=== PATIENT | female | born 1990 | race Caucasian/White ===

== ENCOUNTER 2022-10-14 18:45 | Observation (INO) | payer MEDICAID, SELFPAY ==
[2022-10-14 18:48] VITALS: BP 132/83; PULSE 83; RESP 16; TEMP 37.2; O2SAT 100; BMI 29.2
--- NOTE | 2022-10-14 19:00 | EX.ED.DYSGE1 ---
HPI <MARISA Doss - Last Filed: 10/14/22 20:36> History of Present Illness Chief Complaint: Substance Abuse Narrative Narrative: 32-year-old female with history of anxiety, depression presents to the [facility] apartment for detox from heroin. Patient states that she smokes heroin every 3 hours over the last year. Patient states that in the last year she has not tried to quit. Today, the patient states that she is losing too much of her personal life, she has children, that are being threatened to take away, and she is here for detox. Patient states that she has some nausea, some diarrhea. Patient is tearful however denies any suicidal homicidal ideation. Patient states that she does not use any other drugs, she only smokes cigarettes and uses heroin by inhalation. Patient recently was on a Z-Elier for a respiratory infection. [facility] <MARISA Doss - Last Filed: 10/14/22 20:36> [facility] Medical History Anxiety Depression Medical History no medical history Home Medications albuterol sulfate 90 mcg/actuation aerosol inhaler 1 - 2 inh inhalation UD PRN SHORTNESS OF BREATH/WHEEZING 10/14/22 [History Last Taken 10/13/22] vitamin with calcium no.72-iron 27 mg-folic acid 1 mg tablet (M-Rian Plus) 1 tab PO QHS HEALTH MAINTENANCE 10/14/22 [History Last Taken 10/13/22] sertraline 100 mg tablet 200 mg PO QHS DEPRESSION 10/14/22 [History Last Taken 10/13/22] valacyclovir 500 mg tablet 500 mg PO QHS 10/14/22 [History Last Taken 10/13/22] Allergy/AdvReac Type Severity Reaction Status Date / Time cefaclor [From [facility]] Allergy Rash Verified 10/14/22 18:48 Family History Other Previous section Surgical History H/O: hysterectomy History of tonsillectomy Previous section Surgical History no surgical history Social History Smoking Status: Current every day smoker tobacco type: cigarettes ROS <MARISA Doss - Last Filed: 10/14/22 20:36> ROS ED ROS Narrative Constitutional: Negative for fever, chills, weight loss, weakness Eyes: Negative for vision loss, vision change, double vision ENT: Negative for any sore throat, ear pain, congestion Cardiovascular: Negative for any chest pain, tightness, palpitations Respiratory: Negative for any cough, sputum production, hemoptysis, dyspnea, dyspnea on exertion, orthopnea Gastrointestinal: Negative for any abdominal pain, vomiting, constipation, blood in stool, blood in vomit. Positive for intermittent nausea, diarrhea : Negative for any urinary frequency, dysuria, retention, blood in urine Muscle skeletal: Negative for any muscle joint pain, stiffness, arthralgias, neck pain, back pain. Positive for myalgias Neurological: Negative for any headache, syncope, numbness or tingling, dizziness Skin: Negative for any rashes, lumps, itching, abrasions, lacerations Psychiatric: Negative for any depression, anxiety, stress, suicidal ideation, homicidal ideation Hematologic: Negative for any easy bruising, excessive bruising, easy bleeding Allergies: Negative for any eczema, hives, rash EXAM <MARISA Doss - Last Filed: 10/14/22 20:36> Physical Exam Narrative Exam Narrative: Vital signs reviewed. Patient is tearful however she is in no distress. HEET: Head normocephalic atraumatic, TMs clear bilaterally. Posterior pharynx is clear, moist mucous membranes. Nares clear bilaterally. Neck: Supple with no lymphadenopathy or tenderness. No signs of meningismus, negative jolt sign. Cardiac: Regular rate and rhythm no murmurs gallops or rubs, equal peripheral pulses bilaterally. Respiratory: Patient has expiratory wheeze to bilateral lower lungs. No chest tenderness. Abdomen: Soft, nontender, nondistended. No abdominal bruit or pulsatile masses. No hepatosplenomegaly Extremities: No peripheral edema, no signs of gross trauma or deformity. Active full range of motion of all extremities. Neuro: Cranial nerves II through XII intact, no focal neurological deficits. Skin: Clean dry and intact with no rash, purpura, petechiae, vesicles or pustules. Backs/flank: No CVA tenderness, no midline spinal tenderness, no deformity. Psych: Normal mood and affect. No SI, HI or acute psychosis. Const Vital Signs: 10/14/22 18:48 Temperature 98.9 F Temperature Source Temporal Pulse Rate 83 Respiratory Rate 16 Blood Pressure 132/83 H Blood Pressure Mean 99 Pulse Ox 100 Oxygen Delivery Method Room Air <Dr. Cristofer Spears MD - Last Filed: 10/14/22 20:58> Physical Exam Const Vital Signs: 10/14/22 18:48 Temperature 98.9 F Temperature Source Temporal Pulse Rate 83 Respiratory Rate 16 Blood Pressure 132/83 H Blood Pressure Mean 99 Pulse Ox 100 Oxygen Delivery Method Room Air MDM <MARISA Doss - Last Filed: 10/14/22 20:36> [facility] Lab Data Attestation: I reviewed the patient's lab results. Labs: Laboratory Results - last 24 hr 10/14/22 10/14/22 10/14/22 19:12 19:20 19:20 WBC 12.9 H RBC 5.17 Hgb 15.6 H Hct 47.6 H MCV 92.1 MCH 30.2 MCHC 32.8 RDW Std Deviation 43.5 RDW Coeff of Joni 13.0 Plt Count 411 MPV 9.1 Immature Gran % (Auto) 0.500 Neut % (Auto) 75.1 H Lymph % (Auto) 19.1 Bradley % (Auto) 5.0 Eos % (Auto) 0.2 Baso % (Auto) 0.1 Absolute Neuts (auto) 9.7 H Absolute Lymphs (auto) 2.47 Nucleated RBC % 0 Sodium 139 Potassium 3.9 Chloride 105 Carbon Dioxide 30.0 Anion Gap 4 L BUN 9 Creatinine 0.66 Estim Creat Clear Calc 100.29 Est GFR (MDRD) Af Amer 133 Est GFR (MDRD) Non-Af 110 BUN/Creatinine Ratio 13.7 Glucose 107 H Calcium 9.6 Serum , Qual Urine Opiates Screen POSITIVE H Urine Methadone Screen NEGATIVE Ur Barbiturates Screen NEGATIVE Ur Phencyclidine Scrn NEGATIVE Ur Amphetamines Screen NEGATIVE MDMA (Ecstasy) Screen POSITIVE H U Benzodiazepines Scrn NEGATIVE Urine Cocaine Screen POSITIVE H U Cannabinoids Screen NEGATIVE Ur Drug Screen Comment Ethyl Alcohol 10/14/22 10/14/22 19:20 19:20 WBC RBC Hgb Hct MCV MCH MCHC RDW Std Deviation RDW Coeff of Joni Plt Count MPV Immature Gran % (Auto) Neut % (Auto) Lymph % (Auto) Bradley % (Auto) Eos % (Auto) Baso % (Auto) Absolute Neuts (auto) Absolute Lymphs (auto) Nucleated RBC % Sodium Potassium Chloride Carbon Dioxide Anion Gap BUN Creatinine Estim Creat Clear Calc Est GFR (MDRD) Af Amer Est GFR (MDRD) Non-Af BUN/Creatinine Ratio Glucose Calcium Serum , Qual NEGATIVE Urine Opiates Screen Urine Methadone Screen Ur Barbiturates Screen Ur Phencyclidine Scrn Ur Amphetamines Screen MDMA (Ecstasy) Screen U Benzodiazepines Scrn Urine Cocaine Screen U Cannabinoids Screen Ur Drug Screen Comment Ethyl Alcohol < 3.0 Radiography Diagnostic Testing: Clinical Impression(s) from Imaging Studies Chest X-Ray 10/14/22 19:24 IMPRESSION: No acute cardiopulmonary pathology Electronically Signed: Basilio Mata MD at 20:29 EST Reading Location ID and State: [address] [place] [address] , Service support , Treatment and Re-Evaluation Narrative: Patient appears tearful however she is in no distress. Patient presents to the emergency department for detox from smoking heroin.Patient does have some wheezing, she recently finished a Z-Leier. She will receive a albuterol inhaler, patient CBC shows a leukocytosis white blood count 12.9, patient's chemistries were unremarkable, patient's not , she is positive for opiates, ecstasy, cocaine, however patient is on Zoloft, this could skew the status. Patient chest x-ray 2 view inter by ER physician shows no acute process. Patient was given Ventolin inhaler. Patient will be admitted to the hospitalist for heroin abuse, request detox. <Dr. Cristofer Spears MD - Last Filed: 10/14/22 20:58> [facility] MDM Narrative Medical decision making narrative: I have personally performed a face to face assessment of the patient and have reviewed the SARAN Note. I performed a substantive portion of the visit including all aspects of the following. My franco findings include: History is remarkable for fentanyl use daily. She states she snorts every 3-4 hours. She denies amphetamine methamphetamine use. She has not taken any Adderall in several months. She is on Zoloft which can give a false positive test for amphetamines. This would not explain her talk screen being positive for cocaine though. She states this is affecting her family life. She has 3 kids. She states she presents because she wants help. She has never been in a detox program before. She denies any constitutional symptoms. Denies history of SBE or being immune suppressed. She denies IV drug use. Exam is vital signs are marked for slight elevation of blood pressure. HEENT exams unremarkable. Heart lung exams is remarkable for wheezing. She was treated with MDI. She does give history of recent upper respiratory infection. Abdomen soft nontender. Neuro exam is nonfocal. Medical Decision Making because patient has wheezing she was treated with metered-dose inhaler. She was directed to use the metered-dose inhaler. Chest is obtained to rule out pneumonia. Chest x-ray was independently reviewed and interpreted by me as negative. Blood work is unremarkable. Appropriate blood test for screening for admission for addiction medicine was obtained. Patient be admitted to the hospital service. Other additions or changes: [None] Lab Data Labs: Laboratory Results - last 24 hr 10/14/22 10/14/22 10/14/22 19:12 19:20 19:20 WBC 12.9 H RBC 5.17 Hgb 15.6 H Hct 47.6 H MCV 92.1 MCH 30.2 MCHC 32.8 RDW Std Deviation 43.5 RDW Coeff of Joni 13.0 Plt Count 411 MPV 9.1 Immature Gran % (Auto) 0.500 Neut % (Auto) 75.1 H Lymph % (Auto) 19.1 Bradley % (Auto) 5.0 Eos % (Auto) 0.2 Baso % (Auto) 0.1 Absolute Neuts (auto) 9.7 H Absolute Lymphs (auto) 2.47 Nucleated RBC % 0 Sodium 139 Potassium 3.9 Chloride 105 Carbon Dioxide 30.0 Anion Gap 4 L BUN 9 Creatinine 0.66 Estim Creat Clear Calc 100.29 Est GFR (MDRD) Af Amer 133 Est GFR (MDRD) Non-Af 110 BUN/Creatinine Ratio 13.7 Glucose 107 H Calcium 9.6 Serum , Qual Urine Opiates Screen POSITIVE H Urine Methadone Screen NEGATIVE Ur Barbiturates Screen NEGATIVE Ur Phencyclidine Scrn NEGATIVE Ur Amphetamines Screen NEGATIVE MDMA (Ecstasy) Screen POSITIVE H U Benzodiazepines Scrn NEGATIVE Urine Cocaine Screen POSITIVE H U Cannabinoids Screen NEGATIVE Ur Drug Screen Comment Ethyl Alcohol 10/14/22 10/14/22 19:20 19:20 WBC RBC Hgb Hct MCV MCH MCHC RDW Std Deviation RDW Coeff of Joni Plt Count MPV Immature Gran % (Auto) Neut % (Auto) Lymph % (Auto) Bradley % (Auto) Eos % (Auto) Baso % (Auto) Absolute Neuts (auto) Absolute Lymphs (auto) Nucleated RBC % Sodium Potassium Chloride Carbon Dioxide Anion Gap BUN Creatinine Estim Creat Clear Calc Est GFR (MDRD) Af Amer Est GFR (MDRD) Non-Af BUN/Creatinine Ratio Glucose Calcium Serum , Qual NEGATIVE Urine Opiates Screen Urine Methadone Screen Ur Barbiturates Screen Ur Phencyclidine Scrn Ur Amphetamines Screen MDMA (Ecstasy) Screen U Benzodiazepines Scrn Urine Cocaine Screen U Cannabinoids Screen Ur Drug Screen Comment Ethyl Alcohol < 3.0 Radiography Chest X-Ray - ED: Read by ED Physician, Normal, Heart, Lungs, Mediastinum, Bony Structures and No Acute Disease Diagnostic Testing: Clinical Impression(s) from Imaging Studies Chest X-Ray 10/14/22 19:24 IMPRESSION: No acute cardiopulmonary pathology Electronically Signed: Basilio Mata MD at 20:29 EST Reading Location ID and State: [facility] / [place] , Service support , Discharge Plan Dx/Rx/DC Orders Clinical Impression: Opiate abuse, continuous, Ecstasy abuse, Cough Disposition Disposition: Acute Care [facility]
--- NOTE | 2022-10-14 19:24 | RAD_ITS ---
STUDY: X-RAY CHEST REASON FOR EXAM: Female, 32 years old. cough TECHNIQUE: PA and lateral COMPARISON: None. FINDINGS: The lungs are clear and expanded. There is no demonstrated pleural abnormality. Normal size heart. Normal mediastinum and gabriela. Normal visualized pulmonary arteries. Normal visualized aortic arch and descending thoracic aorta. Dorsal spine demonstrates mild spondylosis. Normal visualized ribs, left clavicle and shoulders. Deformity of the distal right clavicle possibly on the basis of old trauma. There is no demonstrated abnormality of the visualized soft tissue structures of the upper abdomen. RAD/Chest PA and Lateral IMPRESSION: No acute cardiopulmonary pathology Electronically Signed: Basilio Mata MD at 20:29 EST ,
[2022-10-14 19:28] LABS: Absolute Lymphocyte Count 2.47 X10^3/uL (0.83-4.51); Absolute Neutrophil Count 9.7 X10^3/uL (2.0-7.7); Basophil# 0.01 X10^3/uL; Basophil% 0.1 % (0-1); Eosinophil# 0.03 X10^3/uL; Eosinophils% 0.2 % (0-5); Hematocrit 47.6 % (37-47); Hemoglobin 15.6 g/dL (12.0-15.0); Lymphocyte # 2.47 X10^3/ul (0.83-4.51); Lymphocyte % 19.1 % (19-41); Mean Corp Hgb Conc 32.8 g/dL (32-36); Mean Corpuscular Hgb 30.2 pg (27.0-32.0); Mean Corpuscular Volume 92.1 fL (81-99); Mean Platelet Vol. 9.1 fl (6.2-12.0); Monocyte# 0.65 X10^3/uL; NRBC Flagged by Analyzer 0 % (0-5); Neutrophil # 9.69 X10^3/uL (2.7-7.7); Neutrophil % 75.1 % (47-70); Platelet Count 411 K/mm3 (150-450); RBC Distribution Width SD 43.5 fl (35.1-43.9); Red Blood Count 5.17 M/mm3 (4.2-5.4); White Blood Count 12.9 K/mm3 (4.4-11.0)
[2022-10-14 19:37] LABS: Amphetamine Urine VISTA NEGATIVE (<1000 ng/mL); Barbiturate Urine VISTA NEGATIVE (< 200 ng/mL); Benzodiazepine Urine VISTA NEGATIVE (< 200 ng/mL); Cocaine Urine VISTA POSITIVE (< 300 ng/mL); Ecstacy Urine VISTA POSITIVE (< 500 ng/mL); Methadone Urine VISTA NEGATIVE (< 300 ng/mL); PCP Urine VISTA NEGATIVE (< 25 ng/mL); THC Urine VISTA NEGATIVE (< 50 ng/mL); Vista UDS pH Range 5
[2022-10-14 19:58] LABS: Internal QC Validated? YES +Cl - CLEAR BKGD; Pregnancy, Serum, hCG Quali. NEGATIVE Negative
[2022-10-14 20:01] LABS: Alcohol, Blood (Medical)-Serum < 3.0 mg/dL
[2022-10-14 20:03] LABS: Anion Gap 4 (5-15); BUN 9 mg/dL (7-18); BUN/Creat Ratio 13.7 RATIO (10-20); Calcium,Total 9.6 mg/dL (8.5-10.1); Chloride 105 mmol/L (98-107); Creatinine, Serum 0.66 mg/dL (0.55-1.02); EST Glomerular Filtration Rate 110 mL/min (>60); Est Glom Filt Rate - Afr Amer 133 mL/min (>60); Estimated Creatinine Clearance 100.29 ml/min; Glucose 107 mg/dL (74-106); Potassium 3.9 mmol/L (3.5-5.1); Sodium Level 139 mmol/L (136-145)
--- NOTE | 2022-10-14 20:14 | PCM.HP.STD ---
HPI - General General Date of Admission: 10/14/22 Date of Service: 10/14/22 Chief Complaint: Desire for detoxification HPI Narrative PAIGE JACKSON, is a 32 F with a significant history of anxiety and depression; tobacco abuse and and heroin abuse who presents to emergency department with help with detoxification. Reportedly patient has been using heroin for the past 11 months. She smokes the heroin. She smokes about every 3 hours. Last time she used was about 2 and half hours prior to presentation. She used about $50-$100 per day. She reports beginning of withdrawal symptoms. Her withdrawal symptoms includes feeling of something crawling on her body; and anxiety. She report that when she goes into intense withdrawal she has nausea and diarrhea. She is motivated to quit drug use because of her children. She wants to be able to care of her children; and does not want her children to be taken away from her. Recently patient had upper respiratory infection and completed a course of Z-Eleir. Although she reports some improvements in her respiratory symptoms she continues to have some cough above her baseline and postnasal drip. [facility] Medical History Anxiety Depression Medical History no medical history Home Medications albuterol sulfate 90 mcg/actuation aerosol inhaler 1 - 2 inh inhalation UD PRN SHORTNESS OF BREATH/WHEEZING 10/14/22 [History Last Taken 10/13/22] vitamin with calcium no.72-iron 27 mg-folic acid 1 mg tablet (M- Plus) 1 tab PO QHS HEALTH MAINTENANCE 10/14/22 [History Last Taken 10/13/22] sertraline 100 mg tablet 200 mg PO QHS DEPRESSION 10/14/22 [History Last Taken 10/13/22] valacyclovir 500 mg tablet 500 mg PO QHS 10/14/22 [History Last Taken 10/13/22] Allergy/AdvReac Type Severity Reaction Status Date / Time [facility] Allergy Rash Verified 10/14/22 18:48 Family History Other Previous section Surgical History H/O: hysterectomy History of tonsillectomy Previous section Surgical History no surgical history Social History Smoking Status: Current every day smoker tobacco type: cigarettes ROS ROS Narrative Pertinent positives and pertinent negatives as noted in HPI. All other systems were reviewed and are negative Vital Signs Vital Signs Vital Signs: 10/14/22 18:48 Temperature 98.9 F Temperature Source Temporal Pulse Rate 83 Respiratory Rate 16 Blood Pressure 132/83 H Blood Pressure Mean 99 Pulse Ox 100 Oxygen Delivery Method Room Air Weight Weight: 74.8 kg Body Mass Index (BMI) 29.2 Physical Exam Narrative Physical exam: General: Well-nourished, well-developed. Head: Normocephalic, atraumatic, no tenderness Eyes: Vision is grossly intact. EOMI ENT, no trauma, moist mucous membranes, no rhinorrhea Neck: Nontender, full range of motion, no spinal tenderness. CVS: Regular rate and rhythm. S1-S2 present. No murmur, gallop or rub. Respiratory : Wheezes throughout, chest wall nontender. Abdomen: Soft, nontender, nondistended, normal bowel sounds, no masses : Deferred Back: Nontender, no CVA tenderness, no midline spinal tenderness, deformities, step-offs Extremities: Nontender full range of motion, no trauma Skin: Normal color, no trauma, abrasions Neuro: Alert, oriented, cranial nerves II through XII grossly intact. Psychiatry: Normal mood. Normal affect. Not depressed. Not anxious. Results Lab / Micro Data Result Diagrams: 10/14/22 19:20 10/14/22 19:20 Labs: Laboratory Results - last 24 hr 10/14/22 19:12: Urine Opiates Screen POSITIVE H, Urine Methadone Screen NEGATIVE, Ur Barbiturates Screen NEGATIVE, Ur Phencyclidine Scrn NEGATIVE, Ur Amphetamines Screen NEGATIVE, MDMA (Ecstasy) Screen POSITIVE H, U Benzodiazepines Scrn NEGATIVE, Urine Cocaine Screen POSITIVE H, U Cannabinoids Screen NEGATIVE, Ur Drug Screen Comment 10/14/22 19:20: WBC 12.9 H, RBC 5.17, Hgb 15.6 H, Hct 47.6 H, MCV 92.1, MCH 30.2, MCHC 32.8, RDW Std Deviation 43.5, RDW Coeff of Joni 13.0, Plt Count 411, MPV 9.1, Immature Gran % (Auto) 0.500, Neut % (Auto) 75.1 H, Lymph % (Auto) 19.1, [place] % (Auto) 5.0, Eos % (Auto) 0.2, Baso % (Auto) 0.1, Absolute Neuts (auto) 9.7 H, Absolute Lymphs (auto) 2.47, Nucleated RBC % 0 10/14/22 19:20: Sodium 139, Potassium 3.9, Chloride 105, Carbon Dioxide 30.0, Anion Gap 4 L, BUN 9, Creatinine 0.66, Estim Creat Clear Calc 100.29, Est GFR (MDRD) Af Amer 133, Est GFR (MDRD) Non-Af 110, BUN/Creatinine Ratio 13.7, Glucose 107 H, Calcium 9.6 10/14/22 19:20: Ethyl Alcohol < 3.0 10/14/22 19:20: Serum , Qual NEGATIVE Assessment & Plan Assessment/Plan (1) Desire for detoxification: (2) Tobacco abuse: PLAN: Plan Opioid dependence and withdrawal/desire for detoxification Patient be started on Subutex and other adjunctive medications: Gabapentin as needed; dicyclomine as needed; Vistaril as needed; methocarbamol as needed; clonidine as needed; Imodium as needed; trazodone as needed and Zofran as needed. Monitor COWS and CINA score Tobacco abuse Counseled Nicotine patch; and nicotine prescribed. Wheezing Albuterol inhalation was given at the emergency department and continued. DVT prophylaxis Low risk Encourage to ambulate Charges/Coding Visit Charges Inpatient E&M: 21076 Init Hosp L2
[2022-10-14] MEDS: Albuterol Sulfate 8 gm Inhaler (60 puffs) 2 PUFF INHALATION (20:38)
[2022-10-14 20:41] VITALS: PULSE 82; RESP 14
[2022-10-14 20:42] VITALS: BP 128/78; PULSE 78; RESP 16; TEMP 36.6; O2SAT 99
[2022-10-14 21:00] VITALS: BP 126/78; PULSE 78; RESP 16; O2SAT 100
[2022-10-14 21:36] VITALS: BMI 28.8
--- NOTE | 2022-10-14 22:17 | NURSING ---
Patient would like to discuss getting covid and flu vaccines tomorrow. She would like to think about it.
[2022-10-14 22:19] VITALS: BP 130/79; PULSE 89; RESP 18; TEMP 37.2; O2SAT 97
[2022-10-14] MEDS: Sertraline 100 MG Tablet 200 MG PO (22:40)
[2022-10-14] MEDS: traZODone 100 MG Tablet PO (22:40)
[2022-10-14] MEDS: Nicotine Polacrilex 2 MG GUM PO (22:42)
[2022-10-15] VITALS (8 sets, daily range): BP systolic 100–130; BP diastolic 64–96; PULSE 90–102; RESP 12–20; TEMP 36.7–37.6; O2SAT 92–98
[2022-10-15] MEDS: hydrOXYzine PAM 25 MG Capsule 50 MG PO ×3 (04:03→16:49)
[2022-10-15] MEDS: cloNIDine HCl 0.1 MG Tablet PO ×2 (04:03→16:04)
[2022-10-15] MEDS: Dicyclomine 10 MG Capsule 20 MG PO ×3 (04:03→16:49)
[2022-10-15] MEDS: Methocarbamol 750 MG Tablet 1500 MG PO ×3 (04:03→16:50)
[2022-10-15] MEDS: Buprenorphine HCl 2 MG TAB.SUBL SL ×3 (04:09→20:34)
[2022-10-15] MEDS: Gabapentin 300 MG Capsule PO ×2 (05:28→16:04)
[2022-10-15] MEDS: Ondansetron 8 MG Tablet PO ×2 (06:12→20:34)
--- NOTE | 2022-10-15 06:53 | PCM.PN.HOSP ---
Subjective Subjective Feels miserable. Restless legs and being very agitated. Objective Data Objective Data Vital Signs: Vital Signs Temp Pulse Resp BP Pulse Ox O2 Del Method 36.7 C 102 H 20 H 108/96 H 96 Room Air 10/15/22 06:04 10/15/22 06:04 10/15/22 06:04 10/15/22 06:04 10/15/22 06:04 10/15/22 06:04 Oxygen Delivery Method Room Air Weight: 73.8 kg Body Mass Index (BMI) 28.8 Intake & Output: Intake and Output for Last 24 Hours 10/13/22 10/14/22 10/15/22 23:59 23:59 23:59 Intake Total 400 / 400 Balance 400 / 400 Lab / Micro Data Result Diagrams: 10/14/22 19:20 10/14/22 19:20 Labs: Laboratory Results - last 24 hr 10/14/22 19:12: Urine Opiates Screen POSITIVE H, Urine Methadone Screen NEGATIVE, Ur Barbiturates Screen NEGATIVE, Ur Phencyclidine Scrn NEGATIVE, Ur Amphetamines Screen NEGATIVE, MDMA (Ecstasy) Screen POSITIVE H, U Benzodiazepines Scrn NEGATIVE, Urine Cocaine Screen POSITIVE H, U Cannabinoids Screen NEGATIVE, Ur Drug Screen Comment 10/14/22 19:20: WBC 12.9 H, RBC 5.17, Hgb 15.6 H, Hct 47.6 H, MCV 92.1, MCH 30.2, MCHC 32.8, RDW Std Deviation 43.5, RDW Coeff of Joni 13.0, Plt Count 411, MPV 9.1, Immature Gran % (Auto) 0.500, Neut % (Auto) 75.1 H, Lymph % (Auto) 19.1, [place] % (Auto) 5.0, Eos % (Auto) 0.2, Baso % (Auto) 0.1, Absolute Neuts (auto) 9.7 H, Absolute Lymphs (auto) 2.47, Nucleated RBC % 0 10/14/22 19:20: Sodium 139, Potassium 3.9, Chloride 105, Carbon Dioxide 30.0, Anion Gap 4 L, BUN 9, Creatinine 0.66, Estim Creat Clear Calc 100.29, Est GFR (MDRD) Af Amer 133, Est GFR (MDRD) Non-Af 110, BUN/Creatinine Ratio 13.7, Glucose 107 H, Calcium 9.6 10/14/22 19:20: Ethyl Alcohol < 3.0 10/14/22 19:20: Serum , Qual NEGATIVE Radiography Diagnostic Testing: Radiology Impression Chest X-Ray 10/14/22 19:24 IMPRESSION: No acute cardiopulmonary pathology Electronically Signed: Basilio aMta MD at 20:29 EST , Physical Exam Const Constitutional Narrative: Writhing in bed but consolable. Resp normal respiratory effort, no retractions, no use of accessory muscles and clear to auscultation bilaterally Cardio regular rate, regular rhythm, S1 normal heart sound and S2 normal heart sound GI normal to inspection, nondistended, normoactive bowel sounds Assessment & Plan Assessment/Plan (1) Desire for detoxification: PLAN: Smokes heroin. Last use 10/14. Opioid dependence and withdrawal/desire for detoxification Patient be started on Subutex and other adjunctive medications: Gabapentin as needed; dicyclomine as needed; Vistaril as needed; methocarbamol as needed; clonidine as needed; Imodium as needed; trazodone as needed and Zofran as needed. Monitor COWS and CINA score Patient feeling uncomfortable today with her withdrawal. Patient advised that this can be intense for 24 to 48 hours after last use. Her last use was the 25th. Patient seen and showed understanding when she was made aware that there is not much additional medications would give to her at this time. She was requesting trazodone but informed that that can only be given to her at night. (2) Tobacco abuse: PLAN: nicotine patch. PLAN: Plan DVT prophylaxis Low risk Encourage to ambulate Charges/Coding Visit Charges Inpatient E&M: 89703 Subs Hosp L2
[2022-10-15] MEDS: Ensure Plus High Protein 120 ML LIQUID PO (08:29)
--- NOTE | 2022-10-15 08:31 | NURSING ---
warm blanket provided, pt is aware Dr Greta Hawthorne will not change her meds at this time.
[2022-10-15] MEDS: Nicotine Polacrilex 2 MG GUM PO (16:08)
[2022-10-15] MEDS: traZODone 100 MG Tablet PO (20:34)
[2022-10-15] MEDS: Sertraline 100 MG Tablet 200 MG PO (20:36)
[2022-10-16 02:57] VITALS: BP 106/66; PULSE 91; RESP 16; TEMP 36.9; O2SAT 93
[2022-10-16] MEDS: Gabapentin 300 MG Capsule PO ×3 (03:06→20:30)
[2022-10-16] MEDS: cloNIDine HCl 0.1 MG Tablet PO ×3 (03:06→20:30)
[2022-10-16] MEDS: Dicyclomine 10 MG Capsule 20 MG PO ×3 (03:06→16:03)
[2022-10-16] MEDS: Methocarbamol 750 MG Tablet 1500 MG PO ×2 (03:06→12:00)
[2022-10-16] MEDS: Buprenorphine HCl 2 MG TAB.SUBL SL ×3 (04:37→19:57)
--- NOTE | 2022-10-16 07:44 | PCM.PN.HOSP ---
Subjective Subjective Request antibiotics for sinus infection. States that she had some antibiotics weeks ago but her nasal congestion has gotten worse and she has been here. Objective Data Objective Data Vital Signs: Vital Signs Temp Pulse Resp BP Pulse Ox O2 Del Method 36.9 C 91 16 106/66 93 Room Air 10/16/22 02:57 10/16/22 02:57 10/16/22 02:57 10/16/22 02:57 10/16/22 02:57 10/16/22 02:57 Oxygen Delivery Method Room Air Weight: 73.8 kg Body Mass Index (BMI) 28.8 Intake & Output: Intake and Output for Last 24 Hours 10/14/22 10/15/22 10/16/22 23:59 23:59 23:59 Intake Total 400 / 900 1100 / 1100 Balance 400 / 900 1100 / 1100 Lab / Micro Data Result Diagrams: 10/14/22 19:20 10/14/22 19:20 Physical Exam Const alert, no apparent distress and average body habitus HEENT HEENT Narrative: Maxillary sinus tenderness. Resp normal respiratory effort, no retractions, no use of accessory muscles and clear to auscultation bilaterally Cardio regular rate, regular rhythm, S1 normal heart sound and S2 normal heart sound GI normal to inspection, nondistended, normoactive bowel sounds and soft to palpation Assessment & Plan Assessment/Plan (1) Desire for detoxification: PLAN: Smokes heroin. Last use 10/14. Opioid dependence and withdrawal/desire for detoxification Patient be started on Subutex and other adjunctive medications: Gabapentin as needed; dicyclomine as needed; Vistaril as needed; methocarbamol as needed; clonidine as needed; Imodium as needed; trazodone as needed and Zofran as needed. Monitor COWS and CINA score Patient feeling uncomfortable today with her withdrawal. Patient advised that this can be intense for 24 to 48 hours after last use. Her last use was the 25th. Patient seen and showed understanding when she was made aware that there is not much additional medications would give to her at this time. She was requesting trazodone but informed that that can only be given to her at night. (2) Tobacco abuse: PLAN: nicotine patch. (3) Nasal congestion: PLAN: Patient does have some mild maxillary sinus tenderness. I doubt this is bacterial at this time and may be exacerbated by her having withdrawal. Will initiate Flonase. If patient worsens, then may consider antibiotics at a later point. PLAN: Plan DVT prophylaxis Low risk Encourage to ambulate Disposition: Anticipated discharge on the . Addiction medicine to facilitate outpatient programs. Charges/Coding Visit Charges Inpatient E&M: 14150 Subs Hosp L2
[2022-10-16 08:26] VITALS: BP 119/75; PULSE 82; RESP 18; TEMP 36.6; O2SAT 92
[2022-10-16 08:49] VITALS: PULSE 97; RESP 19; O2SAT 98
[2022-10-16] MEDS: Albuterol 2.5 MG/3 ML VIAL.NEB. INHALATION (08:49)
[2022-10-16] MEDS: Ondansetron 8 MG Tablet PO (09:54)
[2022-10-16] MEDS: hydrOXYzine PAM 25 MG Capsule 50 MG PO ×2 (09:54→16:03)
[2022-10-16 14:11] VITALS: BP 122/80; PULSE 71; RESP 18; TEMP 36.3; O2SAT 100
[2022-10-16] MEDS: Nicotine Polacrilex 2 MG GUM PO (16:47)
[2022-10-16] MEDS: Ondansetron 4 MG/2 ML Vial 8 MG IM (18:05)
[2022-10-16 19:54] VITALS: BP 145/92; PULSE 89; RESP 18; TEMP 37.7; O2SAT 99
[2022-10-16] MEDS: traZODone 100 MG Tablet PO (19:57)
[2022-10-16] MEDS: Sertraline 100 MG Tablet 200 MG PO (21:28)
[2022-10-16] MEDS: Calcium Carbonate 500 MG Tablet PO (21:28)
[2022-10-17 02:06] VITALS: BP 128/80; PULSE 91; RESP 18; TEMP 36.8; O2SAT 95
[2022-10-17] MEDS: hydrOXYzine PAM 25 MG Capsule 50 MG PO ×2 (02:24→10:46)
[2022-10-17] MEDS: Ondansetron 4 MG/2 ML Vial 8 MG IM ×2 (02:24→10:46)
[2022-10-17] MEDS: traZODone 100 MG Tablet PO (02:24)
[2022-10-17] MEDS: Dicyclomine 10 MG Capsule 20 MG PO ×3 (02:24→14:43)
[2022-10-17] MEDS: cloNIDine HCl 0.1 MG Tablet PO ×2 (04:20→14:43)
[2022-10-17] MEDS: Buprenorphine HCl 2 MG TAB.SUBL SL ×2 (04:20→16:22)
[2022-10-17] MEDS: Gabapentin 300 MG Capsule PO ×2 (08:21→16:22)
[2022-10-17] MEDS: Methocarbamol 750 MG Tablet 1500 MG PO ×2 (08:21→14:43)
[2022-10-17 08:32] VITALS: BP 105/67; PULSE 80; RESP 18; TEMP 37; O2SAT 98
--- NOTE | 2022-10-17 11:45 | ADDICTION ---
This functional tester typewriters met with PT to conduct ASAM, MSE, AUDIT, DUDIT assessments and to plan for d/c. PT A+Ox4 and participated actively. All assessments completed and placed in PT's chart. PT plans to f/u with [facility] in [place] for follow-up outpatient and MAT treatment services. PT did not indicate a need for transportation post d/c from [facility].
[2022-10-17 14:45] VITALS: BP 122/96; PULSE 106; RESP 18; TEMP 36.9; O2SAT 98
[2022-10-17] MEDS: Nicotine Polacrilex 2 MG GUM PO (16:22)
--- NOTE | 2022-10-17 16:37 | DS.PCM_ITS ---
Providers Date of Admission: 10/14/22 Date of Discharge: 10/17/22 Primary Care Physician: No Primary Care Phys Reason For Visit: DESIRE FOR DETOXIFICATION Diagnosis Discharge Diagnosis (1) Desire for detoxification: Status: Acute (2) Tobacco abuse: Status: Acute Code(s): Z72.0 - Tobacco use (3) Nasal congestion: Status: Acute Code(s): R09.81 - Nasal congestion Plan 1. Acute opioid withdrawal #2 chronic opiate addiction #3 noncompliance with medical regimen #4 polysubstance abuse Medications at Discharge Home Medications albuterol sulfate 90 mcg/actuation aerosol inhaler 1 - 2 inh inhalation UD PRN SHORTNESS OF BREATH/WHEEZING 10/14/22 vitamin with calcium no.72-iron 27 mg-folic acid 1 mg tablet (M-Rian Plus) 1 tab PO QHS HEALTH MAINTENANCE 10/14/22 sertraline 100 mg tablet 200 mg PO QHS DEPRESSION 10/14/22 valacyclovir 500 mg tablet 500 mg PO QHS 10/14/22 Hospital Course Operations None Procedures None Summary of Care Provided Minutes Spent on Discharge: 30 Hospital Course: This 32-year-old white female was seen in the emergency room at [facility] requesting services for opiate detox, patient admitted to using IV heroin, she complained of nausea and loose stool. Labs obtained showed a white blood cell count of 12.9, hemoglobin was 15.6, and talk screen was positive for opiates, MD BUI, and cocaine. Patient was admitted to [place] [address], orders were entered using the opiate detox order set, patient was seen by addiction psychiatric social worker, and she agreed to go to an inpatient detox center after discharge from the hospital. Patient complains of muscle pain and malaise during her hospital stay. The evening of 10/17/2022, patient abruptly requested her belongings a signed out AMA Patient had been seen and examined earlier that day: On examination she appeared in good health and spirits, she does not appear to be in any distress. Vital signs as documented. Skin warm and dry and without overt rashes. Neck without JVD, thyroid appears normal, trachea is midline, neck is supple. Lungs clear, normal air movement was noted. Heart exam notable for regular rhythm, normal sounds and absence of murmurs, rubs or gallops. Abdomen unremarkable and without evidence of organomegaly, masses, or abdominal aortic enlargement, bowel sounds are present in all 4 quadrants, no abdominal tenderness was noted. Extremities nonedematous, no cyanosis was noted, no clubbing was noted. Neuro: Cranial nerv es II through XII are grossly intact, no focal motor deficits were noted, sensation to light touch and pinprick is intact, motor exam 5/5 throughout. Psych: Patient is alert and oriented x3, she does not appear anxious or depressed, she does not appear agitated. Patient signed out AMA. Weight / BMI Weight Weight: 73.8 kg Body Mass Index (BMI) 28.8 ABG / Lab / Microbiology Data Result Diagrams: 10/14/22 19:20 10/14/22 19:20 Meaningful Use Info Meaningful Use Diagnoses (Choose all that apply): None applicable Discharge Plan Admission Admit Date/Time: 10/14/22 20:15 Attending Provider: Erick Rob Primary Care Provider: Care Physician,No Primary Consulting Providers: Darion Alexis ; Devendra Hawthorne Discharge Orders/Prescriptions Prescriptions: No Action sertraline 100 mg tablet 200 mg PO QHS Label Comments: TAKE 2 TABLETS BY MOUTH AT BEDTIME valacyclovir 500 mg tablet 500 mg PO QHS albuterol sulfate 90 mcg/actuation HFA aerosol inhaler 1 - 2 inh INHALATION UD PRN (Reason: SHORTNESS OF BREATH/WHEEZING) M-Rian Plus 27 mg iron- 1 mg tablet 1 tab PO QHS Label Comments: TAKE 1 TABLET BY MOUTH EVERY DAY Referrals / Follow Up: Care Physician,No Primary [Primary Care Provider] - Disposition Disposition (needs filled in before D/C Order can be placed): Against Medical Advice Charges/Coding Visit Charges Inpatient E&M: 28529 Disch Hosp
--- NOTE | 2022-10-17 17:29 | NURSING ---
Pt requested her belongings and signed AMA papers. Dr. Rob notified.
== END 2022-10-17 17:30 | disposition left against medical advice (07) ==
LOC: ED 20:36 → MS3 10-15 06:52
PROVIDERS: Nurse Practitioner; Admitting Provider Hospitalist; Emergency Provider Emergency Medicine; Visit Provider Internal Medicine
DX: F11.23 Opioid dependence with withdrawal (principal); F15.10 Other stimulant abuse, uncomplicated; F17.210 Nicotine dependence, cigarettes, uncomplicated; F41.9 Anxiety disorder, unspecified; R05.9 Cough, unspecified; R09.81 Nasal congestion; F32.A Depression, unspecified; Z79.899 Other long term (current) drug therapy; Z91.199 Patient's noncompliance with other medical treatment and regimen due to unspecified reason
CPT/HCPCS: 71046; 80048; 80307; 82077; 84703; 85025; 94640; 97802; 99283; 99406; H0012; J2405